=== PATIENT | male | born 1995 | race Caucasian/White ===

== ENCOUNTER 2017-11-17 15:33 | Outpatient (CLI) | payer BC ==
--- NOTE | 2017-11-17 17:36 | RAD ---
RADIOGRAPH RIGHT SHOULDER 3 VIEWS: 11/17/17 HISTORY: 22-year-old male with persistent right shoulder pain after hyperextension injury last month. FINDINGS: There is no fracture or dislocation. The AC joint and glenohumeral joint appear normal. IMPRESSION: Negative. POS: [facility]ANTY
== END 2017-11-17 15:34 | disposition home or self-care (01) ==
LOC: NAV RAD 15:33
DX: M25.511 Pain in right shoulder (principal)